=== PATIENT | female | born 1975 | race Caucasian/White ===

== ENCOUNTER 2024-03-05 14:20 | Emergency (ER) | payer BC, SELFPAY ==
[2024-03-05 14:26] VITALS: BP 126/83; BMI 32.0
--- NOTE | 2024-03-05 17:09 | ED.GENMED ---
History of Present Illness
General
Chief Complaint: Eye Problems
Source: patient
Exam Limitations: none
Time Seen by Provider: 03/05/24 16:46
Nursing documentation reviewed up to this point in time: agreed with
Travel History
Have you had any contact with someone who has COVID-19?: No
Do you have any symptoms of coronavirus? Fever > 100 degrees, chills, cough, shortness of breath, sore throat, loss of taste or smell, muscle aches, or headache?: No
History of Present Illness
History of Present Illness:
48 y/o F with no pmh
here with right eye pain and irritation after getting scratched by her dog this morning accidentaly at 9 am
pt has had gritty foreign body sensation feeling since
she washed it out with water
no contact lens history
does wear glasses
+photosensitivity
Past History
Past History
ED Past Medical History: Psychiatric (bipolar) and Other (Asthma, seasonal allergies)
ED Past Surgical History:
Social History
Tobacco: Non-smoker
Alcohol: Occasional
Drug: Marijuana
Living: with family
Family History
Family History: Negative Diabetes, Hypertension or CAD
Review of Systems
Review of Systems
Allergies reviewed?: Yes
All Other Systems: Not applicable
Phy Exam
Physical Exam
Physical Exam:
GENERAL: Alert , in no apparent distress, comfortable at rest
HEAD: NCAT
eye: left eye slight conjucntival injection medially, clear tearing, photophobic minimal; no active drainage
pupil normal PERRL
no hyphema
discolortation within the iris d/w patient, chronic (small dark specks, x 3)
no perioribtal swelling
no lid edema
no lacerations
SKIN: Warm and dry,
Course
Orders/Labs/Results
Orders:
Orders
03/05/24 17:07
Erythromycin (Ilotycin) [Erythromycin 0.5% Ophthalmic Ointment] See Dose Instructions OPHTH NOW STA
Vital Signs
Initial and Last Documented VS:
Initial Vital Signs
Temp Pulse Resp BP Pulse Ox
97.9 F 62 16 126/83 99
03/05/24 14:26 03/05/24 14:26 03/05/24 14:03/05/24 14:03/05/24 14:26
Last Documented Vital Signs
Temp Pulse Resp BP Pulse Ox
97.9 F 62 16 126/83 99
03/05/24 14:26 03/05/24 14:03/05/24 14:03/05/24 14:03/05/24 14:26
MDM/Problems Addressed
Differential Diagnosis Includes:
CORNEAL ABRASION, LESS LIKELY GLOBE RUPTURE
MDM/Problems Addressed:
48 y/o F with irriation and pain to left medial eye after dog accidentally scratched with nail
has had gritty sensation in it and some clear tearing with some mild blurriness
no contacts
visual acuity 20/30
obvious msall defect to cornea just under the pupil left eye medially, 2.5 x 1 mm
seen with fluroscein stain and kim lamp
erythromycin ointment and eye f/u.
*Critical Care Note
Total Time (30-74mins, 75-104mins- exclusive of procedures): Not Applicable
ED Attending Note
-
Portions of this chart may have been created with voice recognition software.� Occasional wrong word or��sound alike� substitutions may have occurred due to the inherent limitations of voice recognition software.
Discharge Plan
Departure
Patient Disposition: Home (Routine Discharge)
Date of Disposition: 03/05/24
Time of Disposition: 17:14
Patient with high blood pressure during this ER visit?: No
Condition: Fair
Covid-19: Not Applicable
Discharge Problem:
Corneal abrasion
Instructions: Corneal Abrasion (DC)
Prescriptions:
New
erythromycin 5 mg/gram (0.5 %) ointment
0.5 inch ophthalmic (eye) QID Qty: 3.5 0RF
Rx Instructions:
apply to left eye 4 times a day for 7 days
No Action
prednisone 20 MG tablet
40 mg PO DAILY Qty: 10 0RF
Referrals:
Florencia Moralez DO [Family Provider] -
Alysha Mcwilliams MD [Active] - Follow up in 2-3 days
Activity Restrictions/Additional Instructions:
YOU HAVE A SCRATCH OF YOUR CORNEA
IT WILL HEAL
YOU SHOULD FOLLOW UP WITH AN EYE DOCTOR
IN THE MENATIME, TRY NOT TO RUB YOUR EYE
APPLY OINTMENT 3-4 TIMES A DAY FOR 5-7 DAYS
WEAR SUNGLASSES IN THE BRIGHT LIGHTS IF SENSITIVE
RETURN FOR ANY CONCERNS.
Interventions
Interventions:
*Risk Screen - Suicide Last Done: 03/05/24 14:26
*Neglect/Abuse Screening Last Done: 03/05/24 14:26
ED- Fall Risk Assessment Last Done: 03/05/24 15:20
*ED COVID-19 Vaccine History Last Done: 03/05/24 14:26
Discharge Date and Time
Print Language: QATARI
[2024-03-05] MEDS: ERYTHROMYCIN 0.5% OPHTHALMIC OINTMENT 1 APPLIC OPHTH (17:35)
[2024-03-05 18:27] VITALS: BP 118/74
== END 2024-03-05 17:40 | disposition home or self-care (01) ==
LOC: EMR 14:20
PROVIDERS: EMERGENCY PHYSICIAN Emergency Medicine; FAMILY PHYSICIAN Family Medicine
DX: S05.01XA Injury of conjunctiva and corneal abrasion without foreign body, right eye, initial encounter (principal); W54.1XXA Struck by dog, initial encounter; F31.9 Bipolar disorder, unspecified; J45.909 Unspecified asthma, uncomplicated
CPT/HCPCS: 99282

== ENCOUNTER → 2024-05-30 09:46 | Outpatient (REF) | payer BC, SELFPAY | LOC: HWWDC 09:46 | PROVIDERS: ATTENDING PHYSICIAN Family Medicine | DX: Z12.31 Encounter for screening mammogram for malignant neoplasm of breast (principal) | CPT/HCPCS: 77063; 77067 ==

== ENCOUNTER → 2025-01-12 12:31 | Outpatient (REF) | payer BC, SELFPAY | LOC: MRI 3T 12:31 | PROVIDERS: ATTENDING PHYSICIAN Student in an Organized Health Care Education/Training Program; FAMILY PHYSICIAN Family Medicine | DX: R51.9 Headache, unspecified (principal) | CPT/HCPCS: 70551 ==

== ENCOUNTER → 2025-11-13 09:14 | Outpatient (REF) | payer BC, SELFPAY | LOC: HWWDC 09:14 | PROVIDERS: ATTENDING PHYSICIAN Family Medicine | DX: Z12.31 Encounter for screening mammogram for malignant neoplasm of breast (principal) | CPT/HCPCS: 77063; 77067 ==